=== PATIENT | female | born 1955 | race African-American/Black ===

== ENCOUNTER 2023-08-09 10:06 | Day surgery (SDC) | payer OTHER ==
[2023-08-05 14:17] VITALS: BMI 42.1
[2023-08-09 11:54] VITALS: PULSE 76; TEMP 97.7
[2023-08-09 12:21] VITALS: RESP 18
[2023-08-09 12:26] VITALS: BP 122/65
== END 2023-08-09 12:26 | disposition home or self-care (01) ==
LOC: FASU-ENDO 10:06
PROVIDERS: ATTEND Internal Medicine Gastroenterology
PROC: 0DB68ZX Excision of Stomach, Via Natural or Artificial Opening Endoscopic, Diagnostic (ICD-10-PCS; 2023-08-09)
PROC: 0DB48ZX Excision of Esophagogastric Junction, Via Natural or Artificial Opening Endoscopic, Diagnostic (ICD-10-PCS; 2023-08-09)
PROC: 0DB98ZX Excision of Duodenum, Via Natural or Artificial Opening Endoscopic, Diagnostic (ICD-10-PCS; principal; 2023-08-09 11:38)
DX: K29.50 Unspecified chronic gastritis without bleeding (principal); K21.00 Gastro-esophageal reflux disease with esophagitis, without bleeding; K44.9 Diaphragmatic hernia without obstruction or gangrene; R10.13 Epigastric pain
CPT/HCPCS: 82962; 88305-TC; 88342-TC